=== PATIENT | male | born 1960 | race Caucasian/White ===

== ENCOUNTER 2019-06-14 13:53 | Emergency (ER) | payer BC ==
[2019-06-14] MEDS ORDERED: Metoclopramide HCl 10 MG/2 ML VIAL ONE (14:29)
[2019-06-14] MEDS ORDERED: Ketorolac Tromethamine 30 MG/ML VIAL ONE (14:29)
[2019-06-14] MEDS ORDERED: diphenhydrAMINE 50 MG/ML VIAL ONE (14:29)
[2019-06-14] MEDS ORDERED: Sodium Chloride 0.9% 1,000 ML ONE (14:29)
== END 2019-06-14 17:40 | disposition home or self-care (01) ==
LOC: MADERS 13:53
DX: G43.909 Migraine, unspecified, not intractable, without status migrainosus (principal)
CPT/HCPCS: 96361; 96374; 96375; J1200; J1885; J2765; J7050